=== PATIENT | female | born 1995 | race Two or more races ===

== ENCOUNTER 2020-06-17 13:03 | Emergency (ER) | payer OTHER ==
[~2020-06-17] VITALS: Ht 170.2 cm; Wt 95.3 kg
[2020-06-17 13:35] VITALS: BP 120/86
--- NOTE | 2020-06-17 13:35 | NUR ---
ED Nurse Note: pt presents to ED c/o head and bilat arm pain. pt states that she was pulling something off of a shelf and the shelf fell over onto her. pt sustained a head lac and abrasions to her arms. there is bruising to bilat upper extremities and L eye brow. pt denies LOC
--- NOTE | 2020-06-17 13:52 | NUR ---
ED Nurse Note: pt taken to CT via w/c in stable condition accompanied by electron beam photo mask technician.
--- NOTE | 2020-06-17 14:11 | NUR ---
ED Nurse Note: pt back from CT
--- NOTE | 2020-06-17 14:13 | Diagnostic Imaging Report ---
. Indications: Head trauma, pain Technique: Spiral acquisitions obtained through the brain. Angled axial and coronal 5 x 5 mm slices were reconstructed. Total dose length product 1072 mGycm. CTDI vol(s) 53 mGy. Dose reduction achieved using automated exposure control Comparison: None. Findings: No acute intracranial hemorrhage or edema, mass effect, nor midline shift. Normal turk-white differentiation. Normal size ventricles and extra axial CSF spaces. Visualized orbits and sinuses are unremarkable. The calvarium is intact. The mastoids are clear. In the center of the brain, there is a vertically oriented strip of low attenuation, best appreciated on the coronal images, which is an artifact. Impression: Negative The CT scanner at [facility] is accredited by the [employer] and the scans are performed using protocols designed to limit radiation exposure to as low as reasonably achievable to attain images of sufficient resolution adequate for diagnostic evaluation. Indications: Technique: Spiral acquisitions obtained through the brain. Angled axial and coronal 5 x 5 mm slices were reconstructed. Total dose length product 1072 mGycm. CTDI vol(s) 53 mGy. Dose reduction achieved using automated exposure control Comparison: Findings: Impression: The CT scanner at [facility] is accredited by the [employer] and the scans are performed using protocols designed to limit radiation exposure to as low as reasonably achievable to attain images of sufficient resolution adequate for diagnostic evaluation.
--- NOTE | 2020-06-17 14:31 | Emergency Room Report ---
History of Present Illness General Chief Complaint: Head Injury Source: Patient Present Illness HPI 25-year-old female no past medical history here status post injury to the head. Patient reports that she got up and went In and had her left side of scalp on the frontal sign and then he fell on left arm and right hand. Minimal bleeding noted. Patient is up-to-date with tetanus shot. Has not taken medication for symptom relief. Denies any loss of consciousness, dizziness, blurry vision, nausea or vomiting. Denies . 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 Patient History Past Medical History: see triage record Past Surgical History: none Pertinent Family History: none Last Menstrual Period: 05/31/20 Now: No Immunizations: UTD Reviewed Nursing Documentation: PMH: Agreed; PSxH: Agreed Nursing Documentation-PMH Past Medical History: No History, Except For Hx Gastrointestinal Problems: Yes - gastritis Review of Systems All Other Systems: negative except mentioned in HPI Physical Exam Vital Signs Date Time Temp Pulse Resp B/P (MAP) Pulse Ox O2 Delivery O2 Flow Rate FiO2 06/17/20 13:15 98.4 92 14 124/85 (98) 95 Room Air Sp02 EP Interpretation: reviewed, normal General Appearance: no apparent distress, alert, GCS 15, non-toxic Head: other - Laceration frontal scalp the left side Eyes: bilateral eye normal inspection, bilateral eye PERRL ENT: hearing grossly normal, normal pharynx, no angioedema, normal voice Neck: full range of motion, supple/symm/no masses Respiratory: chest non-tender, lungs clear, normal breath sounds, speaking full sentences Cardiovascular #1: regular rate, rhythm, no edema Cardiovascular #2: 2+ carotid (R), 2+ carotid (L), 2+ radial (R), 2+ radial (L), 2+ dorsalis pedis (R), 2+ dorsalis pedis (L) Gastrointestinal: normal bowel sounds, non tender, soft, non-distended, no g uarding, no rebound Rectal: deferred Musculoskeletal: back normal, digits/nails normal, no calf tenderness, pelvis stable, gait/station normal, non-tender, swelling - Left forearm and right dorsum of hand Neurologic: alert, motor strength/tone normal, oriented x3, sensory intact, responsive, speech normal Psychiatric: judgement/insight normal, memory normal, mood/affect normal, no suicidal/homicidal ideation Skin: laceration - 1 cm laceration frontal lobe left side Lymphatic: no adenopathy Procedures Laceration/Wound Repair Laceration/Wound Repair : Consent: Verbal Wound Location: head Wound's Depth, Shape: superficial Wound Length (cm): 1 Wound Explored: contaminated Betadine Prep?: Yes Wound Repaired With: rasheed Number of Sutures: 3 Layer Closure?: Yes Sterile Dressing Applied?: Yes Splint Applied?: No Sling Applied?: No Patient Tolerated: Well Complications: None Medical Decision Making PA Attestation All my diagnosis and treatment plans were reviewed ad discussed with my burgos pervising physician Dr. Dozier Diagnostic Impression: Primary Impression: Laceration of head Additional Impressions: Head contusion Forearm contusion ER Course 25-year-old female no past medical history here status post injury to the head. Patient reports that she got up and went In and had her left side of scalp on the frontal sign and then he fell on left arm and right hand. Minimal bleeding noted. Patient is up-to-date with tetanus shot. Has not taken medication for symptom relief. Denies any loss of consciousness, dizziness, blurry vision, nausea or vomiting. Denies . Ddx considered but are not limited to: cerebral hematoma, concussion, skull fr acture, head contusion, forearm fracture versus contusion, head contusion versus fracture Vital signs: are WNL, pt. is afebrile H&PE are most consistent with: Superficial laceration of head, head contusion, forearm and hand contusion ORDERS: head CT no contrast, mupirocin ointment, Motrin ED INTERVENTIONS: [place] applied, wound closure and dressing DISCHARGE: At this time pt. is stable for d/c to home. Will provide printed patient care instructions, and any necessary prescriptions. Care plan and follow up instructions have been discussed with the patient prior to discharge. Patient take medication as directed, rasheed removed in 5 to 7 days, if worsening symptoms return to the emergency room Other X-Ray Diagnostic Results Other X-Ray Diagnostic Results #1: X-Ray ordered: Right hand x-ray # of Views/Limited Vs Complete: 3 View Indication: Swelling EP Interpretation: Yes PA Xray: Interpretation reviewed, by supervising MD, and agrees with findings. Interpretation: no dislocation, no fractures Impression: No acute disease Electronically Signed by: Yoon BEATTY Scribe Text Indication: Trauma, pain Technique: 3 views right hand Comparison: none Findings: No acute fractures. No dislocations. The joint spaces are preserved. Impression: Negative Other X-Ray Diagnostic Results #2: X-Ray ordered: Left forearm # of Views/Limited Vs Complete: 3 View Indication: Pain EP Interpretation: Yes PA Xray: Interpretation reviewed, by supervising MD, and agrees with findings. Interpretation: no dislocation, no fractures Impression: No acute disease Electronically Signed by: Yoon BEATTY Scribe Text Procedure: XRAY Forearm 2v L Indications: Trauma, pain Technique: Two views of the left forearm Comparison: None Findings: No acute fractures. No dislocations. The joint spaces are preserved. Impression: Negative CT/MRI/US Diagnostic Results CT/MRI/US Diagnostic Results : Imaging Test Ordered: CT head no contrast Impression Findings: No acute intracranial hemorrhage or edema, mass effect, nor midline shift. Normal turk-white differentiation. Normal size ventricles and extra axial CSF spaces. Visualized orbits and sinuses are unremarkable. The calvarium is intact. The mastoids are clear. In the center of the brain, there is a vertically oriented strip of low attenuation, best appreciated on the coronal images, which is an artifact. Impression: Negative The CT scanner at [facility] is accredited by the [employer] and the scans are performed using protocols designed to limit radiation exposure to as low as reasonably achievable to attain images of sufficient resolution adequate for diagnostic evaluation. Indications: Technique: Spiral acquisitions obtained through the brain. Angled axial and coronal 5 x 5 mm slices were reconstructed. Total dose length product 1072 mGycm. CTDI vol(s) 53 mGy. Dose reduction achieved using automated exposure control Comparison: Findings: Impression: Last Vital Signs Date Time Temp Pulse Resp B/P (MAP) Pulse Ox O2 Delivery O2 Flow Rate FiO2 06/17/20 13:35 98.4 86 16 120/86 97 Room Air Disposition: HOME, SELF-CARE Condition: Stable Scripts Mupirocin* (MUPIROCIN*) 22 Gm Oint...g. 1 APPLIC TOPIC THREE TIMES A DAY, #22 GM Prov: Yoon Rushing 06/17/20 Ibuprofen* (MOTRIN*) 600 Mg Tablet 600 MG ORAL THREE TIMES A DAY, #20 TAB Prov: Yoon Rushing 06/17/20 Patient Instructions: Facial or Scalp Contusion, Laceration Care, Adult Additional Instructions: Take medication as directed, follow-up with your primary care provider, rasheed to be removed in 5 to 7 days, if worsening symptoms return to emergency room Yoon Rushing Jun 17, 2020 14:31
[2020-06-17] MEDS ORDERED: MUPIROCIN22 GM TOPIC (14:38)
[2020-06-17] MEDS ORDERED: IBUPROFEN600 M1 ORAL (14:38)
--- NOTE | 2020-06-17 14:43 | NUR ---
ED Nurse Note: rasheed applied to head lac by DERRICK.
[2020-06-17 15:24] VITALS: BP 126/84
--- NOTE | 2020-06-17 15:24 | NUR ---
ER DISCHARGE NOTE: Patient is cleared to be discharged per ERMD, pt is aox4, on room air, with stable vital signs. pt was given dc and prescription instructions, pt was able to verbalize understanding, pt id band removed without complications. pt is able to ambulate with steady gait. pt took all belongings.
--- NOTE | 2020-06-17 16:37 | Diagnostic Imaging Report ---
Indication: Trauma, pain Technique: 3 views right hand Comparison: none Findings: No acute fractures. No dislocations. The joint spaces are preserved. Impression: Negative
--- NOTE | 2020-06-17 16:38 | Diagnostic Imaging Report ---
Indications: Trauma, pain Technique: Two views of the left forearm Comparison: None Findings: No acute fractures. No dislocations. The joint spaces are preserved. Impression: Negative
== END 2020-06-17 15:24 | disposition home or self-care (01) ==
LOC: EMR 14:45
DX: S01.91XA Laceration without foreign body of unspecified part of head, initial encounter (principal); S50.12XA Contusion of left forearm, initial encounter; R22.31 Localized swelling, mass and lump, right upper limb; X58.XXXA Exposure to other specified factors, initial encounter; Y92.9 Unspecified place or not applicable
CPT/HCPCS: 12011; 70450; 73090; 73130; Z7502; 99284

== ENCOUNTER 2020-06-28 17:44 | Emergency (ER) | payer OTHER ==
[~2020-06-28] VITALS: Ht 170.2 cm; Wt 90.7 kg
[~2020-06-28 17:44] MED LIST: IBUPROFEN600 M1 ORAL; MUPIROCIN22 GM TOPIC
--- NOTE | 2020-06-28 18:00 | NUR ---
ED Nurse Note: Pt cleared by health care Provider for discharge. DC instructions was given and explained to pt and verbalized understanding of teachings. All medical deviecs such as ID band removed. Pt is AAO x4, ambulatory and left with all personal belongings.
--- NOTE | 2020-06-28 18:05 | Emergency Room Report ---
History of Present Illness General Chief Complaint: Wound Recheck/Suture Removal Source: Patient Present Illness HPI 25-year-old female with no significant medical history here requesting staple removal from scalp. Patient was seen at [facility] 1 week ago and 3 rasheed were placed in. Laceration has healed and no pus drainage noted. No bleeding noted. Denies any new fall or injury. 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 COVID-19 Screening: Negative COVID-19 COVID-19 Testing Source: [facility] Patient History Past Medical History: see triage record Past Surgical History: none Pertinent Family History: none Last Menstrual Period: 06/26/20 Now: No Immunizations: UTD Reviewed Nursing Documentation: PMH: Agreed; PSxH: Agreed Nursing Documentation-PMH Hx Gastrointestinal Problems: Yes - gastritis Review of Systems All Other Systems: negative except mentioned in HPI Physical Exam Vital Signs Date Time Temp Pulse Resp B/P (MAP) Pulse Ox O2 Delivery O2 Flow Rate FiO2 06/28/20 17:49 98.1 79 18 97/59 (72) 98 Room Air Sp02 EP Interpretation: reviewed, normal General Appearance: well appearing, no apparent distress Head: normocephalic, atraumatic ENT: hearing grossly normal, normal voice Neck: full range of motion, supple Respiratory: no respiratory distress, speaking full sentences Cardiovascular #1: normal inspection Gastrointestinal: non tender Neurologic: alert, oriented Skin: other - Healed laceration with [address] Lymphatic: no adenopathy Procedures Additional Procedure Procedure Narrative 3 rasheed were removed from anterior frontal lobe and the left side without any complication. Medical Decision Making PA Attestation All diagnoses and treatment plans were reviewed and discussed with my supervising physician Dr. Quesada Diagnostic Impression: Primary Impression: Removal of staple ER Course 25-year-old female with no significant medical history here requesting staple removal from scalp. Patient was seen at [facility] 1 week ago and 3 rasheed were placed in. Laceration has healed and no pus drainage noted. No bleeding noted. Denies any new fall or injury. Ddx considered but are not limited to : Superficial laceration, deep laceration, tendon involvement with laceration, laceration with foreign body Vital signs: are WNL, pt. is afebrile H&PE are most consistent with: Staple removal without complications ORDERS: None ED INTERVENTIONS: 3 rasheed were removed DISCHARGE: At this time pt. is stable for d/c to home. Will provide printed alena ent care instructions, and any necessary prescriptions. Care plan and follow up instructions have been discussed with the patient prior to discharge. Proper wound care was discussed with patient. Advised patient return to emergency room worsening symptoms Last Vital Signs Date Time Temp Pulse Resp B/P (MAP) Pulse Ox O2 Delivery O2 Flow Rate FiO2 06/28/20 17:49 98.1 79 18 97/59 (72) 98 Room Air Disposition: HOME, SELF-CARE Condition: Stable Patient Instructions: Wound Check Yoon Rushing Jun 28, 2020 18:05
[2020-06-28 18:31] VITALS: BP 97/59
== END 2020-06-28 18:10 | disposition home or self-care (01) ==
LOC: EMR 18:00
DX: S01.01XD Laceration without foreign body of scalp, subsequent encounter (principal); X58.XXXD Exposure to other specified factors, subsequent encounter; Z48.02 Encounter for removal of sutures
CPT/HCPCS: 99282